=== PATIENT | female | born 1980 | race Caucasian/White ===

== ENCOUNTER 2017-06-23 09:00 | Emergency (ER) | payer OTHER ==
[2017-06-23 09:12] VITALS: BP 128/86; PULSE 91; RESP 16; TEMP 98.1; O2SAT 95
[2017-06-23] MEDS ORDERED: IBUPROFEN 600 MG TAB PO ONE ×2 (09:21→09:22)
--- NOTE | 2017-06-23 09:23 | EDPHY ---
H & P Time Seen by Provider: 06/23/17 09:19 HPI/ROS: CHIEF COMPLAINT: Fall, leg pain HISTORY OF PRESENT ILLNESS: Patient is a 36-year-old female who presents emergency department after falling. Patient states she was hanging on a bag during exercise when it gave loose. She fell to the ground landing on her feet. She developed sudden severe pain in her upper lateral legs bilaterally. She describes pain over the proximal lateral fibula bilaterally. She states the right is worse than the left. The pain in her right leg is severe. She was able to ambulate immediately after the incident and ambulate into the emergency department. She denies foot, heel, ankle, knee, thigh or hip pain. She has no back pain. No weakness or numbness. She denies sustaining any other injury. She did not strike her head or lose consciousness. No neck pain. REVIEW OF SYSTEMS: My complete review of systems is negative except as mentioned in the HPI. Smoking Status: Never smoked Physical Exam: Vitals noted GENERAL: Well-appearing, in no acute distress, alert. HEAD: No evidence of trauma. EYES: PERRLA, normal to inspection. ENT: Normal NECK: The C-spine is nontender. NEXUS criteria is negative (no midline tenderness, no distracting injury, no altered mental status, no recent alcohol use, no focal neurologic deficit). RESPIRATORY: No distress. Breathes easily. CVS: Regular rate and rhythm, no rubs, murmurs, or gallops. ABDOMEN: Soft, nontender Pelvis: Stable. No tenderness palpation. Hips full range of motion. BACK: Normal to inspection, no spinal tenderness, no spinal step off, no notable bruising or abrasions. SKIN: Normal color, warm, dry. No pallor or diaphoresis. EXTREMITIES: Right upper extremity: Atraumatic. No visible signs of trauma. No tenderness palpation. Neurovascular intact distally. Left upper extremity: Atraumatic. No visible signs of trauma. No tenderness palpation. Neurovascular intact distally. Right lower extremity: No visible signs of trauma. Mild tenderness palpation over the superior fibula. No knee tenderness. No patellar tenderness. Full range of motion of the knee. Patient has no distal tib-fib tenderness. The ankle, heel and foot are nontender with no signs of trauma. Neurovascular intact distally. Left lower extremity: No visible signs of trauma. Mild tenderness palpation over the superior fibula. No knee tenderness. No patellar tenderness. Full range of motion of the knee. Patient has no distal tib-fib tenderness. The ankle, heel and foot are nontender with no signs of trauma. Neurovascular intact distally. NEURO/PSYCH: Alert and oriented x 3, GCS 15, normal mood and affect, normal motor sensory exam. Constitutional: Initial Vital Signs Temperature (C) 36.7 C 06/23/17 09:10 Heart Rate 91 06/23/17 09:10 Respiratory Rate 16 06/23/17 09:10 Blood Pressure 128/86 H 06/23/17 09:10 O2 Sat (%) 95 06/23/17 09:10 O2 Delivery Mode Room Air Allergies/Adverse Reactions: No Known Allergies Allergy (Verified 06/23/17 09:03) Home Medications: Medication Instructions Recorded Sertraline HCl [Zoloft 100mg (RX)] 08/30/13 "Cycline" For Skin 06/23/17 Cholesterol Med 06/23/17 Medical Decision Making - Diagnostics Imaging Results: Imaging Impressions Tibia/Fibula X-Ray 06/23/17 09:19 Impression: Suspect acute proximal right fibular neck fracture. Likely chronic abnormality proximal left fibular neck. Results discussed with Dr. Campa at 9:55 AM. ED Course/Re-evaluation: In the emergency department I discussed possible etiologies with the patient. I answered all her questions. Tib-fib x-rays were ordered bilaterally. I do not feel the patient needs imaging of her ft or ankle. She has no tenderness to palpation. She is able to bear weight without pain at that location. She has full range of motion of her hips. I doubt pelvic injury. She has no low back tenderness or pain. Right tib-fib x-ray: Please refer the dictated report by Dr. Avila. Patient has a fracture of the fibular neck. Left tib-fib x-ray: Please refer the dictated report by Dr. Avila. No acute fracture noted. I discussed the results with the patient. I answered all her questions. A long leg knee immobilizer was placed. The patient will be nonweightbearing. She was instructed on crutch use. She will follow up with Orthopedics. She is given warnings prior to leaving. Differential Diagnosis: My differential includes but is not limited to fracture, dislocation, contusion , sprain, compartment syndrome, spinal injury - Data Points Medications Given: Discontinued Medications Ibuprofen (Motrin) 600 mg PO EDNOW ONE Stop: 06/23/17 09:23 Last Admin: 06/23/17 09:24 Dose: 600 mg Departure - Departure Disposition: Home, Routine, Self-Care Clinical Impression: Leg pain, bilateral Right fibular fracture Qualifiers: Encounter type: initial encounter Fibula location: proximal Fracture type: closed Fracture morphology: unspecified fracture morphology Qualified Code(s): S82.831A - Other fracture of upper and lower end of right fibula, initial encounter for closed fracture Condition: Good Instructions: Contusion in Adults (ED), Leg Fracture (ED) Additional Instructions: You have a fracture of your proximal fibula on the right. Keep your mobilizer in place. You should be nonweightbearing. Call Orthopedics to make an appointment tomorrow. Referrals: Kristofer Todd MD [Primary Care Provider] - 2-3 days without fail Brett Rosado MD [Medical Doctor] - 5-7 days, call for appt.
== END 2017-06-23 10:10 | disposition home or self-care (01) ==
LOC: CED 09:00
DX: S82.831A Other fracture of upper and lower end of right fibula, initial encounter for closed fracture (principal); W18.39XA Other fall on same level, initial encounter
CPT/HCPCS: 73590-PO; L1830